=== PATIENT | male | born 1990 | race Caucasian/White ===

== ENCOUNTER 2017-03-20 21:49 | Emergency (ER) | payer MEDICAID, MEDICARE ==
[~2017-03-20] VITALS: Ht 175.3 cm; Wt 95.5 kg
[2017-03-20 22:00] VITALS: BP 120/82; PULSE 111; RESP 16; O2SAT 99
--- NOTE | 2017-03-20 23:22 | ED.REPORT ---
HPI-Extremity Problem Lower Date of Service Mar 20, 2017 ED Provider: Jason Garcia Adalberto AVILES Pt is a 26 y/o male who presents to the ED c/o swelling in his R foot onset 2-3 days ago. He thinks that he may have been bitten by something. He denies fever, chills, SOB, nausea, vomiting, diarrhea, focal weakness, or numbness/tingling in his foot. Nursing Notes Stated Complaint: SWOLLEN FOOT, MAYBE BUG BITE Chief Complaint: General Complaint Nursing Notes Reviewed: Yes Allergies: Coded Allergies: No Known Allergies (Unverified , 03/20/17) Scheduled PRN diphenhydrAMINE HCl (Benadryl) 25 Mg Capsule 25 MG PO Q4 PRN PRN For Itching General Time Seen by MD: 23:22 Chief Complaint Other (R foot swelling) Hx Obtained From: Patient Arrived By: Walk-in Onset Occurred: 2 days ago Symptom Duration: Constant Caused by: Animal bite Quality: Painful Severity: Current: Mild Severity: Maximum: Mild Recent Healthcare: No recent doctor visit, No recent hospitalization Similar Sx Previous: No Past Medical History Past Medical History Denies Past Surgical History Denies Smoking History Unknown if Ever Smoker Ambulatory Status Independent Review of Systems Constitutional: Denies: Chills, Fever Skin: Reports Swelling (R foot ) Neurologic: Denies: Focal weakness, Numbness Complete sys rev & neg: except as marked. Respiratory: Denies: Shortness of breath GI: Denies: Diarrhea, Nausea, Vomiting Physical Exam Initial Vital Signs Vital Signs (First) Date Time Temp Pulse Resp B/P Pulse Ox O2 Delivery O2 Flow Rate FiO2 03/20/17 22:00 36.9 111 16 120/82 99 Room Air Initial VS: Reviewed Head / Eyes: Atraumatic, Normocephalic Neck: Supple, Full range of motion Respiratory: No respiratory distress Abdomen / GI: Soft, Non-tender Upper Extremities: Vascular intact, Neuro intact, No swelling, No tenderness Skin: Warm, Dry, No cyanosis Neurologic: Alert, Oriented, Nonfocal Psychiatric: Mood/affect normal, Behavior normal, Normal thought content Lower Extremity / Pelvis / MS: Neurologic intact, Vascular intact Ankle / Foot: Neurologic intact, Vascular intact Small area of erythema over lateral right ankle 2/4 posterior tibial pulse General/Constitutional: Awake, Alert Re-Eval/Medical Decision Med Decision/Clinical Course It appears patient is mostly here for reassurance/education. His foot is mildly swollen with what appears to be alba to a small mosquito bite on the lateral aspect of the lower leg. I advised him to use Benadryl for symptom relief and follow up with his PCP. I see no evidence of cellulitis or DVT or abscess. He is agreement with this plan Source of Hx: Old records Re-Evaluation/Progress : Time of Eval: 23:22 Re-Evaluation/Progress Note: Discussed plan for discharge. Patient understands and agrees with plan. F/U instructions and RTER warnings given. All questions addressed at this time. Counseled Regarding: Diagnosis, Lab results, Need for follow-up, When/why to return to ED Discharge & Departure Impression: Primary Impression: Bug bite Encounter type: initial encounter Qualified Code: W57.XXXA - Bitten or stung by nonvenomous insect and other nonvenomous arthropods, initial encounter Additional Impression: Itching Disposition: Home Discharge Condition All VS Reviewed: Yes Condition: Stable Additional Instructions: Thank you for entrusting us with your medical care today. Your emergency department evaluation today was reassuring. Take Benadryl as directed. Icing your foot will help with the swelling. Please call your primary care physician tomorrow in order to schedule a follow- up appointment for a recheck. Please return to the emergency department for any new or worsening symptoms. Referrals: Bita Orta MD Scribe Attestation Portions of this note were transcribed by Dixie Sanchez. I, Dr. Cabrales, personally performed the history, physical exam and medical decision-making; I reviewed and confirmed the accuracy of the information in the transcribed note. copies to: Bita Orta MD, Gary R DO Mar 20, 2017 23:22 Dixie Sanchez Mar 20, 2017 23:42
[2017-03-20] MEDS ORDERED: DIPH25CA6 PO (23:45)
[2017-03-20] MEDS ORDERED: diphenhydrAMINE 25 mg Capsule PO ONE (23:45)
[2017-03-20 23:52] VITALS: BP 128/79; PULSE 100; RESP 18; O2SAT 97
== END 2017-03-20 23:52 | disposition home or self-care (01) ==
LOC: SED 21:49
DX: L29.9 Pruritus, unspecified (principal); W57.XXXA Bitten or stung by nonvenomous insect and other nonvenomous arthropods, initial encounter; Y92.9 Unspecified place or not applicable; Y93.9 Activity, unspecified; Y99.8 Other external cause status